=== PATIENT | male | born 1960 | race Hispanic/Latino ===

== ENCOUNTER 2017-08-18 18:39 | Emergency (ER) | payer OTHER, SELFPAY ==
[2017-08-18] MEDS ORDERED: Proparacaine 0.5% Opth 15 ML BOT ONE (18:49)
== END 2017-08-18 20:09 | disposition home or self-care (01) ==
LOC: ERS 18:39
DX: T15.01XA Foreign body in cornea, right eye, initial encounter (principal); Z87.891 Personal history of nicotine dependence; W45.8XXA Other foreign body or object entering through skin, initial encounter
CPT/HCPCS: 65220